=== PATIENT | male | born 1940 | race American Indian/Alaskan Native ===

== ENCOUNTER 2021-09-12 12:47 | Emergency (ER) | payer MEDICARE ==
--- NOTE | 2021-09-12 14:34 | Emergency Department Report ---
<ANDI MARIE - Last Filed: 09/12/21 14:32> ED General Adult HPI - General Chief complaint: High BP Stated complaint: HYPERTENSION Source: patient, EMS Mode of arrival: Ambulatory Limitations: No Limitations - History of Present Illness Initial comments: 80-year-old male who denies any significant past medical history was brought to the ER today by EMS with concern for elevated blood pressure. Patient states that he just started at a [facility] today. He states that when he checked his blood pressure he noticed that it was elevated and so they called EMS to bring him to the ER. Patient states that other than having pain in his lower back and his left hip he has no other symptoms. He states that he has never been told in the past about his blood pressure being elevated and is never been treated for hypertension in the past. MD Complaint: Elevated BP -: This morning Severity scale (0 -10): 0 - Related Data Previous Rx's Medication Instructions Recorded Last Taken Type Amlodipine Bes/Olmesartan Med 1 each PO DAILY 30 Days #30 tab 09/12/21 Unknown Rx [Amlodipine-Olmesartan 5-20 mg] Allergies Allergy/AdvReac Type Severity Reaction Status Date / Time No Known Allergies Allergy Unverified 09/12/21 13:18 ED Review of Systems Comment: All other systems reviewed and negative Constitutional: denies: chills, fever Eyes: denies: eye pain, eye discharge, vision change ENT: denies: ear pain, throat pain Respiratory: denies: cough, shortness of breath, wheezing Cardiovascular: denies: chest pain, palpitations, edema, syncope, paroxysmal nocturnal dyspnea Endocrine: no symptoms reported Gastrointestinal: denies: abdominal pain, nausea, diarrhea Genitourinary: denies: urgency, dysuria, frequency, hematuria, discharge, testicular pain, testicular mass Musculoskeletal: back pain, arthralgia Skin: denies: rash, lesions, change in color, change in hair/nails, pruritus Neurological: denies: headache, weakness, numbness, paresthesias, confusion, abnormal gait, vertigo Psychiatric: denies: anxiety, depression, auditory hallucinations, visual hallucinations, homicidal thoughts, suicidal thoughts Hematological/Lymphatic: denies: easy bleeding, easy bruising, swollen glands ED Past Medical Hx - Medications Home Medications: Home Medications Medication Instructions Recorded Confirmed Last Taken Type Amlodipine Bes/Olmesartan Med 1 each PO DAILY 30 Days #30 tab 09/12/21 Unknown Rx [Amlodipine-Olmesartan 5-20 mg] ED Physical Exam - General Limitations: No Limitations General appearance: alert, in no apparent distress - Head Head exam: Present: atraumatic, normocephalic, normal inspection - Eye Eye exam: Present: normal appearance, PERRL, EOMI Pupils: Present: normal accommodation - Respiratory Respiratory exam: Present: normal lung sounds bilaterally. Absent: respiratory distress - Cardiovascular Cardiovascular Exam: Present: regular rate, normal rhythm, normal heart sounds - GI/Abdominal GI/Abdominal exam: Present: soft. Absent: distended, tenderness, guarding, rebound - Neurological Exam Neurological exam: Present: alert, oriented X3, CN II-XII intact, normal gait - Psychiatric Psychiatric exam: Present: normal affect, normal mood - Skin Skin exam: Present: intact ED Disposition Clinical Impression: Hypertensive urgency Disposition: 01 HOME / SELF CARE / HOMELESS Condition: Stable Instructions: Preventing Hypertension, Hypertension, Adult, [id number], Hypertension, Adult, Managing Your Hypertension Prescriptions: Amlodipine Bes/Olmesartan Med [Amlodipine-Olmesartan 5-20 mg] 1 each PO DAILY 30 Days #30 tab <TITO MEJIA - Last Filed: 09/12/21 17:49> ED Review of Systems ROS: Stated complaint: HYPERTENSION Other details as noted in HPI ED Course Vital Signs 09/12/21 13:14 Temperature 98.3 F Pulse Rate 64 Respiratory 16 Rate Blood Pressure 210/90 [Left] O2 Sat by Pulse 98 Oximetry ED Medical Decision Making - Lab Data Result diagrams: 09/12/21 15:30 09/12/21 15:30 Critical care attestation.: If time is entered above; I have spent that time in minutes in the direct care of this critically ill patient, excluding procedure time. ED Disposition Is pt being admited?: No Does the pt Need Aspirin: No
[2021-09-12 15:43] LABS: Hematocrit 37.2 % (35.5-45.6); Hemoglobin 12.8 gm/dl (11.8-15.2); Mean Corpuscular HGB Conc 34 % (32-34); Mean Corpuscular Volume 100 fl (84-94); Platelet Count 243 K/mm3 (140-440); Red Blood Count 3.73 M/mm3 (3.65-5.03)
[2021-09-12 15:54] LABS: Alanine Aminotransferase 15 units/L (7-56); BUN/Creatinine Ratio 16; Blood Urea Nitrogen 13 mg/dL (9-20); Calcium 10.8 mg/dL (8.4-10.2); Hemolysis Index 15
[2021-09-12 16:06] LABS: Alanine Aminotransferase 15 units/L (7-56); Albumin 4.9 g/dL (3.9-5); BUN/Creatinine Ratio 19; Bilirubin,Direct < 0.2 mg/dL (0-0.2); Blood Urea Nitrogen 13 mg/dL (9-20); Calcium 10.5 mg/dL (8.4-10.2); Hemolysis Index 1
--- NOTE | 2021-09-12 16:45 | Cat Scan Report ---
CT ABDOMEN AND PELVIS WITHOUT CONTRAST INDICATION / CLINICAL INFORMATION: Abdominal Pain. TECHNIQUE: Axial CT images were obtained through the abdomen and pelvis without IV contrast. All CT scans at this location are performed using CT dose reduction for ALARA by means of automated exposure control. COMPARISON: None available. FINDINGS: LOWER CHEST: No significant abnormality. LIVER: No significant abnormality. GALLBLADDER: Contracted. BILE DUCTS: No significant abnormality. PANCREAS: No significant abnormality. SPLEEN: No significant abnormality. ADRENALS: No significant abnormality. RIGHT KIDNEY / URETER: Multiple simple cysts but no significant abnormality. LEFT KIDNEY / URETER: No significant abnormality. STOMACH / SMALL BOWEL: Fluid-filled, nondilated loops of small bowel. No structure in. COLON: Diverticulosis without acute inflammation. APPENDIX: No significant abnormality. PERITONEUM: No free fluid. No free air. No fluid collection. LYMPH NODES: No significant adenopathy. AORTA / ARTERIES: Mild atherosclerotic calcification without acute abnormality. IVC / VEINS: No significant abnormality. URINARY BLADDER: No significant abnormality. REPRODUCTIVE ORGANS: Brachytherapy implants in the prostate gland. ADDITIONAL FINDINGS: None. SKELETAL SYSTEM: No significant abnormality. IMPRESSION: 1. No inflammatory process or bowel obstruction. 2. Fluid-filled, nondilated loops of small bowel which are nonspecific but can be seen in the clinica l setting of enteritis. Signer Name: Carmencita Curiel MD Signed: 09/12/2021 4:41 PM Workstation Name: [id number]
[2021-09-12] MEDS ORDERED: amLODIPine 5 MG TAB PO ONE (17:50)
[2021-09-12 18:23] VITALS: BP 168/89
[2021-09-12 18:49] LABS: Basophils % (Manual) 0 % (0.0-1.8); Eosinophils % (Manual) 0 % (0.0-4.3); Monocytes % (Manual) 0 % (0.0-7.3); Total Cells Counted 100
[2021-09-12 18:50] LABS: Platelet Estimate Consistent w Auto; RBC Morphology Normal
== END 2021-09-12 18:10 | disposition home or self-care (01) ==
LOC: ED 12:47
DX: I16.0 Hypertensive urgency (principal); R10.9 Unspecified abdominal pain
CPT/HCPCS: 36415; 74176; 80048; 80053; 80076; 84484; 85007; 85025; 99284